=== PATIENT | male | born 1960 | race Caucasian/White ===

== ENCOUNTER → 2019-01-14 | Outpatient (CLI) | payer BC ==
[~2019-01-14] MED LIST: AMLO5; ASPI325; ASPI81EC PO; ATOR40TA; CLOP75 PO; FOSI10 PO; HYDACE5 PO; ISOMON60ER PO; LABE200; METCAR500 PO; NITR.4SL; ROSU5 PO
[2019-01-14 18:41] LABS: Source, Urine Clean Catch
[2019-01-14 19:34] LABS: Bilirubin, Urine Neg (Neg); Blood, Urine 1+ (Neg); Glucose Qualitative, Urine Neg (Neg); Ketones, Urine Neg (Neg); Leukocyte Esterase, Urine Neg (Neg); Nitrite, Urine Neg (Neg); Protein, Urine Neg (Neg); Specific Gravity, Urine 1.015 (1.003-1.022); Urobilinogen, Urine NORM (Normal)
[2019-01-14 19:46] LABS: Appearance, Urine Clear (Clear); Color, Urine Yellow (P-Yellow)
[2019-01-14 19:47] LABS: Bacteria Few /hpf; Squamous Epithelial Cells Not Seen /hpf (Few); White Blood Cells, Urine Not Seen /hpf (0-5)
== END | disposition home or self-care (01) ==
LOC: OLS 18:40 → LAB SHORT 18:40
PROVIDERS: Internal Medicine
DX: N41.9 Inflammatory disease of prostate, unspecified (principal)
CPT/HCPCS: 81001

== ENCOUNTER 2021-06-15 07:20 | Inpatient (IN) | payer BC ==
[~2021-06-15] VITALS: Ht 160 cm; Wt 91.7 kg
[~2021-06-15 07:20] MED LIST changes: -ISOMON60ER PO; +ISOSORBIDE MONO60 MG PO
[2021-06-15] MEDS ORDERED: CILO100 PO (10:06)
[2021-06-15] MEDS ORDERED: TRULICITY0.75 MG/01 SQ (10:09)
[2021-06-15] MEDS ORDERED: METFORMIN HCL500 M3 PO (10:10)
[2021-06-15 10:13] LABS: BASOPHILS ABSOLUTE AUTO 0.03 K/mm3 (0.00-0.23); BASOPHILS PERCENT AUTO 0 % (0-2); EOSINOPHILS ABSOLUTE AUTO 0.37 K/mm3 (0.00-0.68); EOSINOPHILS PERCENT AUTO 4 % (0-6); Hematocrit 37.9 % (37.0-53.0); IMMATURE GRAN ABSOLUTE AUTO 0.06 K/mm3 (0.00-0.10); IMMATURE GRAN PERCENT AUTO 1 % (0-1); LYMPHOCYTES ABSOLUTE AUTO 2.04 K/mm3 (0.84-5.20); LYMPHOCYTES PERCENT AUTO 22 % (21-46); MONOCYTES PERCENT AUTO 6 % (4-13); Mean Corpuscular HGB 31.8 pg (26.0-34.0); Mean Corpuscular HGB Conc 34.3 g/dL (31.5-36.5); Mean Corpuscular Volume 93 fL (80-100); Mean Platelet Volume 10.2 fL (9.1-12.4); NEUTROPHILS ABSOLUTE AUTO 6.27 K/mm3 (1.96-9.15); NEUTROPHILS PERCENT AUTO 67 % (41-73); Platelet Count 269 K/mm3 (150-400); RDW Coefficient Variation 12.8 % (11.7-14.2); RDW Standard Deviation 43.5 fL (35.1-46.3); Red Blood Cell Count 4.09 M/mm3 (4.30-5.90); White Blood Cell Count 9.37 K/mm3 (4.00-11.30)
[2021-06-15 10:25] LABS: Alanine Aminotransfer (ALT/SGP 56 U/L (12-78); Albumin, Blood 4.1 g/dL (3.4-5.0); Alk Phos 85 U/L (50-136); Anion Gap 9 mmol/L (6-16); Aspartate Aminotrans (AST/SGOT 44 U/L (12-37); Bilirubin, Total 0.4 mg/dL (0.1-1.0); Blood Urea Nitrogen 20 mg/dL (8-24); Bun/Creatinine Ratio 16.5 (12.0-20.0); CO2, Blood 20 mmol/L (21-32); Calcium, Blood 9.5 mg/dL (8.5-10.1); Chloride, Blood 111 mmol/L (98-108); Creatinine, Blood 1.21 mg/dL (0.60-1.20); Globulin, Blood 4.3 g/dL (2.2-4.0); Glomerular Filtration Rate >60 (60-); Glucose, Blood 174 mg/dL (70-99); Potassium, Blood 4.3 mmol/L (3.5-5.5); Sodium, Blood 140 mmol/L (136-145); Total Protein, Blood 8.4 g/dL (6.4-8.2)
[2021-06-15 14:10] LABS: Anti-Xa UFH, PHA Monitoring <0.10 IU/mL; International Normalized Ratio 1.07; Prothrombin Time Results 11.2 Sec (9.7-11.5)
--- NOTE | 2021-06-15 17:56 | NUR ---
SHIFT SUMMARY PT HAS BEEN INDEPENDENT IN ROOM SINCE ADMISSION. PT HAS HAD NO EPISODES OF CHEST PAIN. VITAL SIGNS STABLE. PT HAS HAD MANY QUESTIONS ABOUT THEIR PLAN OF CARE AND THE TREATMENT PLAN FOR THE CURRENT CONDITION. PT HAS BEEN COOPERATIVE WITH CARES. VSS, NO CHANGE IN CONDITION.
--- NOTE | 2021-06-15 22:21 | NUR ---
CARE ASSUMPTION: PATIENT IN BED WITH DAUGHTER AT BEDSIDE. VERIFIED HEPARIN DRIP WITH JADIEL MOORE RN. NS RUNNING TO RIGHT ARM IV. PATIENT AMBULATED TO TOILET. VSS ON RA. A&O X4, PLEASANT AND COOPERATIVE WITH CARE. BED LOW WITH CALL LIGHT IN PLACE.
[2021-06-16 05:11] LABS: Anion Gap 9 mmol/L (6-16); Blood Urea Nitrogen 23 mg/dL (8-24); Bun/Creatinine Ratio 19.7 (12.0-20.0); CO2, Blood 21 mmol/L (21-32); Calcium, Blood 9.1 mg/dL (8.5-10.1); Chloride, Blood 108 mmol/L (98-108); Creatinine, Blood 1.17 mg/dL (0.60-1.20); Glomerular Filtration Rate >60 (60-); Glucose, Blood 120 mg/dL (70-99); Potassium, Blood 3.9 mmol/L (3.5-5.5); Sodium, Blood 138 mmol/L (136-145)
--- NOTE | 2021-06-16 06:27 | NUR ---
SHIFT SUMMARY: PATIENT DENIES SOB, CHEST PAIN, OR OTHER DISCOMFORT THIS SHIFT. PATIENT NPO SINCE MIDNIGHT - LAST SNACK AROUND 2300. MEDICATED PER EMAR. HEPARIN RUNNING AT 19U/KG/HR. ANGIO SCHEDULED FOR TODAY. FAMILY AT BEDSIDE SUPPORTIVE AND HELPFUL. WILL REPORT TO ONCOMING RN.
[2021-06-16 12:22] LABS: Hematocrit 36.5 % (37.0-53.0); Hemoglobin 12.8 g/dL (13.5-17.5); Mean Platelet Volume 9.8 fL (9.1-12.4); Platelet Count 270 K/mm3 (150-400)
--- NOTE | 2021-06-16 18:31 | NUR ---
NO ACUTE EVENTS THIS SHIFT, VSS. PT ALERT AND ORIENTED, COOPERATIVE WITH CARE. PT'S FAMILY WAS AT BEDSIDE THROUGHOUT SHIFT, QUESTIONS ANSWERED TO SATISFACTION. HEPARIN GTT RUNNING PER EMAR. PT WENT TO MACHINE PLUG SHAPER IN AFTERNOON, UPON RETURN VSS AND TR BAND IN PLACE. NO DISCHARGE OR HEMATOMA, RECOVERY OF TR BAND STARTED. PT HAS NAUSEA AND SMALL EMESIS AFTER RETURNING FROM MACHINE PLUG SHAPER, ZOFRAN GIVEN PER EMAR. PT DENIED CHEST PAIN THIS SHIFT.
--- NOTE | 2021-06-16 19:36 | NUR ---
CARE ASSUMPTION: RECEIVED REPORT FROM KWASI CRUMP. PATIENT IN BED WITH AT BEDSIDE. RADIAL SITE WNL, REMOVED 2CC OF AIR. PATIENT AND FAMILY PROCESSING THE NEWS HE WILL TRANSFER TO [facility] WHEN A BED IS AVAILABLE WITH PLANS FOR BYPASS TOMORROW. DENIES CHEST PAIN OR SOB AT THIS TIME.
--- NOTE | 2021-06-17 05:29 | NUR ---
SHIFT SUMMARY: PATIENT DENIES SOB OR CHEST PAIN. ANGIO SITE RECOVERED WNL, TEGADERM COVERING SITE, AND ARM BAND IN PLACE. VSS ON RA/CPAP T/O SHIFT. FAMILY AT BEDSIDE FOR SUPPORT. PLAN TO TRANSFER TO [facility] FOR BYPASS WHEN A BED IS AVAILABLE. PLEASANT AND COOPERATIVE WITH CARE. WILL CONTINUE TO MONITOR AND REPORT TO ONCOMING RN.
[2021-06-17 10:22] LABS: CHOL/HDL RATIO 3.7; Cholesterol 125 mg/dL (50-200); HDL Cholesterol 34 mg/dL (>39); LDL/HDL RATIO 1.3; Low Density Lipoprotein Chol 46 mg/dL (0-110); Triglycerides 227 mg/dL (30-160); Very Low Density Lipoprot Chol 45 mg/dL (6-32)
--- NOTE | 2021-06-17 16:27 | NUR ---
NO ACUTE EVENTS THIS SHIFT, VSS. PT DENIED CHEST PAIN THIS SHIFT. ON ROOM AIR, TOLERATING WELL. PT LEFT VIA MEDICAL TRANSPORT TO [facility]. HEPARIN GTT RUNNING PER EMAR, TAKEN WITH PT BY TRANSPORT. REPORT GIVEN TO MEGHA [employer] AND AXLES INSPECTOR AT [facility]. PT AND FAMILYY'S QUESTIONS ANSWERED TO SATISFACTION.
== END 2021-06-17 16:10 | disposition short-term general hospital (02) | DRG 281 ==
LOC: ER 07:20 → PCU 12:22
PROVIDERS: Emergency Medicine; Nurse Practitioner Acute Care; Student in an Organized Health Care Education/Training Program; ADMIT Internal Medicine
PROC: 4A023N7 Measurement of Cardiac Sampling and Pressure, Left Heart, Percutaneous Approach (ICD-10-PCS; principal; 2021-06-16)
PROC: B2111ZZ Fluoroscopy of Multiple Coronary Arteries using Low Osmolar Contrast (ICD-10-PCS; 2021-06-16)
DX: I21.4 Non-ST elevation (NSTEMI) myocardial infarction (principal); T82.855A Stenosis of coronary artery stent, initial encounter; I21.A9 Other myocardial infarction type; I25.10 Atherosclerotic heart disease of native coronary artery without angina pectoris; I10 Essential (primary) hypertension; I73.9 Peripheral vascular disease, unspecified; E11.51 Type 2 diabetes mellitus with diabetic peripheral angiopathy without gangrene; G47.33 Obstructive sleep apnea (adult) (pediatric); E78.5 Hyperlipidemia, unspecified; Z79.82 Long term (current) use of aspirin; Z79.02 Long term (current) use of antithrombotics/antiplatelets; Z79.899 Other long term (current) drug therapy; Y71.3 Surgical instruments, materials and cardiovascular devices (including sutures) associated with adverse incidents
CPT/HCPCS: 36415; 71045; 76937; 80048; 80053; 80061; 82947; 84484; 85014; 85018; 85025; 85049; 85520; 85610; 93005; 93010; 93454; 94660; 94762; 99152; 99153; 99285-25; A9270; C1769; C1887; C1894; C8929; J1644; J2250; J2405; J3010; J7030; J7040; Q9957; Q9967

== ENCOUNTER 2021-07-27 03:07 | Emergency (ER) | payer BC ==
[~2021-07-27] VITALS: Ht 160 cm; Wt 75.3 kg
[~2021-07-27 03:07] MED LIST changes: +CILO100 PO; +METFORMIN HCL500 M3 PO; +TRULICITY0.75 MG/01 SQ
[2021-07-27 05:25] LABS: BASOPHILS ABSOLUTE AUTO 0.01 K/mm3 (0.00-0.23); BASOPHILS PERCENT AUTO 0 % (0-2); EOSINOPHILS ABSOLUTE AUTO 0.08 K/mm3 (0.00-0.68); EOSINOPHILS PERCENT AUTO 1 % (0-6); Hemoglobin 13.4 g/dL (13.5-17.5); IMMATURE GRAN ABSOLUTE AUTO 0.06 K/mm3 (0.00-0.10); IMMATURE GRAN PERCENT AUTO 1 % (0-1); LYMPHOCYTES ABSOLUTE AUTO 0.35 K/mm3 (0.84-5.20); LYMPHOCYTES PERCENT AUTO 4 % (21-46); MONOCYTES ABSOLUTE AUTO 0.26 K/mm3 (0.16-1.47); MONOCYTES PERCENT AUTO 3 % (4-13); Mean Corpuscular HGB 31.2 pg (26.0-34.0); Mean Corpuscular HGB Conc 32.7 g/dL (31.5-36.5); Mean Corpuscular Volume 96 fL (80-100); NEUTROPHILS PERCENT AUTO 91 % (41-73); Platelet Count 245 K/mm3 (150-400); RDW Coefficient Variation 14.5 % (11.7-14.2); RDW Standard Deviation 50.9 fL (35.1-46.3); Red Blood Cell Count 4.29 M/mm3 (4.30-5.90); White Blood Cell Count 8.36 K/mm3 (4.00-11.30)
[2021-07-27 05:48] LABS: Albumin, Blood 3.1 g/dL (3.4-5.0); Albumin/Globulin Ratio 0.7 (0.8-1.8); Bilirubin, Total 0.6 mg/dL (0.1-1.0); Bun/Creatinine Ratio 35.2 (12.0-20.0); Calcium, Blood 9.2 mg/dL (8.5-10.1); Creatinine, Blood 1.05 mg/dL (0.60-1.20); Globulin, Blood 4.7 g/dL (2.2-4.0); Potassium, Blood 4.8 mmol/L (3.5-5.5); Total Protein, Blood 7.8 g/dL (6.4-8.2)
[2021-07-27 06:05] LABS: Influenza A, PCR NEGATIVE (NEGATIVE); Influenza B, PCR NEGATIVE (NEGATIVE); Resp Syncytial Virus, PCR NEGATIVE (NEGATIVE); SARS-Cov-2 (COVID-19) PCR, MMC NEGATIVE (NEGATIVE)
[2021-07-27] MEDS ORDERED: Tessalon Perle100 MG PO (06:35)
== END 2021-07-27 08:45 | disposition home or self-care (01) ==
LOC: ER 03:07
PROVIDERS: Emergency Medicine
DX: R05.3 Chronic cough (principal); R06.02 Shortness of breath; R00.0 Tachycardia, unspecified; I25.10 Atherosclerotic heart disease of native coronary artery without angina pectoris; I10 Essential (primary) hypertension; E11.9 Type 2 diabetes mellitus without complications; Z95.5 Presence of coronary angioplasty implant and graft; Z79.82 Long term (current) use of aspirin; Z79.84 Long term (current) use of oral hypoglycemic drugs; Z20.822 Contact with and (suspected) exposure to COVID-19; Z95.1 Presence of aortocoronary bypass graft
CPT/HCPCS: 0241U; 71046; 71260; 80053; 83880; 85025; A9270; J2270; J2405; Q9967

== ENCOUNTER → 2021-09-06 | Outpatient (CLI) | payer BC ==
[~2021-09-06] MED LIST changes: +Tessalon Perle100 MG PO
== END | disposition home or self-care (01) ==
LOC: LAB SHORT 11:40 → LAB 11:40
DX: L02.415 Cutaneous abscess of right lower limb (principal)
CPT/HCPCS: 87070; 87075; 87205